=== PATIENT | male | born 1960 | race Caucasian/White ===

== ENCOUNTER 2019-02-25 16:14 | Outpatient (REF) | payer OTHER, SELFPAY ==
[2019-02-25 21:39] LABS: ALT 31 U/L (16-63); AST 19 U/L (15-37); Albumin 3.8 g/dL (3.4-5.0); Alkaline Phosphatase 32 U/L (46-116); Anion Gap 8.9 mmol/L (3-11); BUN 20 mg/dL (7-18); Bilirubin, Total 0.4 mg/dL (0.2-1.0); CO2 26.1 mmol/L (21.0-32.0); CREATININE 0.96 mg/dL (0.70-1.30); Calcium 9.5 mg/dL (8.5-10.1); Chloride 108 mmol/L (98-107); Glucose 94 mg/dL (74-106); Potassium 4.2 mmol/L (3.5-5.1); Sodium 143 mmol/L (136-145); TSH (W/Ref FT4) 13.74 uIU/mL (0.36-3.74); Total Protein 6.8 g/dL (6.4-8.2)
== END 2019-02-25 16:34 ==
LOC: NCHCN 16:14
PROVIDERS: PCP Nurse Practitioner; Visit Provider Nurse Practitioner Family
DX: R03.0 Elevated blood-pressure reading, without diagnosis of hypertension (principal); E78.5 Hyperlipidemia, unspecified; E03.9 Hypothyroidism, unspecified; M79.671 Pain in right foot
CPT/HCPCS: 80053; 84439; 84443

== ENCOUNTER 2019-04-14 16:48 | Outpatient (REF) | payer OTHER, SELFPAY ==
[2019-04-14 21:57] LABS: TSH (W/Ref FT4) 4.34 uIU/mL (0.36-3.74)
[2019-04-14 22:27] LABS: FREE T4 1.22 ng/dL (0.76-1.46)
== END 2019-04-14 17:08 ==
LOC: NCHCN 16:48
PROVIDERS: PCP Nurse Practitioner; Visit Provider Nurse Practitioner Family
DX: E78.5 Hyperlipidemia, unspecified (principal)
CPT/HCPCS: 84439; 84443

== ENCOUNTER 2020-04-18 07:05 | Emergency (ER) | payer OTHER, SELFPAY ==
[2020-04-18 07:16] VITALS: BP 155/106; PULSE 59; RESP 16; TEMP 36.1; O2SAT 96
--- NOTE | 2020-04-18 08:05 | ED.GENADUL_ITS ---
Discharge Plan Disposition Patient Disposition: HOME Condition: Stable Discharge Details Clinical Impression: Low back pain Primary Care Provider: Shoshana Vines ED Provider: Alfred Castro Home Meds and New Rx's Prescriptions: New cyclobenzaprine 10 mg tablet 10 mg PO TID PRNQty: 20 RF: 0 prednisone 20 mg tablet 60 mg PO DAILY 4 Days Qty: 12 RF: 0 Discharge Instructions Instructions: Low Back Strain (ED) Additional Instructions: continue to take 600mg ibuprofen and 1000mg tylenol every 6 hours for pain as needed do not drink alcohol or drive if you take the flexeril follow up with your primary care provider in 1-2 weeks if symptoms continue if you have fevers, difficulty urinating or severe worsening pain return to the emergency department Stand Alone Forms: Physical Therapy Referral Medical Decision Making 59 yo male who denies chronic medical problems and denies ever being a smoker, 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 Denies falls or trauma. Denies difficulty urinating or with bowel movements, no loose stools. Denies fevers, chills, night sweats. He localizes the pain to the low back, no abdominal pain. He has no swelling, erythema, crepitus. Has pain when I palpate both sides of the low back, no midline pain, no saddle anesthesia, no leg swelling, normal sensation and pulses in the feet, does have increased pain standing straight up. His pain seems most likely musculoskeletal such as strain or muscle spasm and possibly sciatica. No findings on exam to suggest cauda equina or epidural abscess, no findings to suggest osteo and given lack of trauma doubt fracture and do not feel imaging indicated. Will start him on steroids and muscle relaxers and start PT. Discussed importance of following up with pcp and return precautions given as well Differential Diagnosis Differential Diagnosis: sciatica, muscle spasm, strain HPI General Mode of arrival: ambulatory . Date/Time Provider Initiated Documentation: 04/18/20 07:21 . Limitations to Documentation: no limitations . Information obtained by: patient . History of Present Illness 59 year old M presents to the emergency department with the chief complaint of back pain, described as moderate, Quality is described as aching, and is localized to the back. Patient started experiencing this day(s) (1) and it has been constant. No relieving factors improve symptom(s), No exacerbating factors reported . Patient notes no other symptoms.. Patient did receive the following treatments prior to arrival, NSAID Related Data Home Medications Medication Instructions Recorded Confirmed cyclobenzaprine 10 mg PO TID PRN #20 tab 04/18/20 prednisone 60 mg PO DAILY 4 Days #12 tab 04/18/20 Previous Rx's Medication Instructions Recorded cyclobenzaprine 10 mg PO TID PRN #20 tab 04/18/20 prednisone 60 mg PO DAILY 4 Days #12 tab 04/18/20 Allergies Allergy/AdvReac Type Severity Reaction Status Date / Time No Known Allergies Allergy Unverified 04/18/20 07:20 General Stated Complaint: Orthopedic NGUYEN: 4 Review of Systems All systems reviewed & are unremarkable except as noted in HPI and below Constitutional Constitutional: Denies chills, Denies fever(s) and Denies weakness Cardiovascular Cardiovascular: Denies chest pain and Denies dyspnea Respiratory Respiratory: Denies cough and Denies dyspnea Gastrointestinal Gastrointestinal: Denies abdominal pain, Denies nausea and Denies vomiting Genitourinary Genitourinary: Denies dysuria Musculoskeletal Musculoskeletal: Denies joint swelling Integumentary/Breasts Skin/Breast: Denies rash Neurologic Neurologic: Denies weakness PFSH Social History Smoking/Tobacco Use Status: Never Smoking risk assessment performed?: Yes Alcohol Intake: current Alcohol Intake frequency: holidays/special occasions only Substance use type: does not use Exam Const General: no acute distress Orientation: alert HENMT Head: normal to inspection Ears: external ears normal General nose exam: external nose normal Mouth: moist mucous membranes Eyes General: appearance normal, both eyes and all related structures Neck Neck: normal visual inspection Resp Effort & Inspection: normal respiratory effort and able to speak in complete sentences Cardio Rate: regular rate Back/Spine/Pelvis Back: no CVA tenderness and No Yates-Arechiga sign present Skin General skin exam: no rashes or lesions noted Neuro General: patient alert and patient oriented x3 Extrem General: normal to inspection Psych Mental Status: mental status grossly normal Course Vital Signs Vital signs: Vital Signs Temperature 36.1 C L 04/18/20 07:16 Pulse 59 L 04/18/20 07:16 Respiratory Rate 16 04/18/20 07:16 Blood Pressure 155/106 H 04/18/20 07:16 Pulse Oximetry 96 04/18/20 07:16 Temperature 36.1 C L 04/18/20 07:16 Temperature Source Skin 04/18/20 07:16 Pulse 59 L 04/18/20 07:16 Respiratory Rate 16 04/18/20 07:16 Respiratory Effort Non-Labored 04/18/20 07:16 Blood Pressure 155/106 H 04/18/20 07:16 Blood Pressure Position Sitting 04/18/20 07:16 Pulse Oximetry 96 04/18/20 07:16 Oxygen Delivery Method Room Air 04/18/20 07:16 Oxygen Flow Rate 0 04/18/20 07:16 Pain Level 8 04/18/20 07:21
[2020-04-18 08:30] VITALS: BP 142/93; PULSE 59; RESP 16; O2SAT 96
== END 2020-04-18 08:33 | disposition home or self-care (01) ==
PROVIDERS: Emergency Provider Emergency Medicine; PCP Nurse Practitioner
DX: M54.5 Low back pain (principal); M79.605 Pain in left leg
CPT/HCPCS: 99283